=== PATIENT | male | born 1955 | race Caucasian/White ===

== ENCOUNTER 2018-07-08 16:12 | Emergency (ER) | payer BC ==
[2018-07-08 16:54] VITALS: BP 153/83
--- NOTE | 2018-07-08 17:12 | ED ---
Throat Pain/Nasal Congestion - HPI Summary HPI Summary: 62 yr old male with maxillary sinus pressure, post nasal drip, coughing. Onset a week ago, and getting worse. He has had prior sinus infections. He requests antibiotics at this point. He has no other complaints. - History of Current Complaint Chief Complaint: UCGeneralIllness Time Seen by Provider: 07/08/18 16:55 - Allergies/Home Medications Allergies/Adverse Reactions: Allergies Allergy/AdvReac Type Severity Reaction Status Date / Time Adhesive Tape Allergy Blisters Verified 07/08/18 16:50 [Tegaderm Dressing] PMH/Surg Hx/FS Hx/Imm Hx - Surgical History Surgery Procedure, Year, and Place: cholecystectomy Infectious Disease History: No Infectious Disease History: Denies: Traveled Outside the [place] in Last 30 Days - Social History Occupation: Employed Full-time Alcohol Use: Occasionally Substance Use Type: Reports: None Smoking Status (MU): Never Smoked Tobacco Review of Systems Constitutional: Negative Positive: Nasal Discharge, Other - sinus pressure All Other Systems Reviewed And Are Negative: Yes Physical Exam Triage Information Reviewed: Yes Vital Signs On Initial Exam: Initial Vitals Temp Pulse Resp BP Pulse Ox 97.5 F 90 16 153/83 97 07/08/18 16:50 07/08/18 16:50 07/08/18 16:50 07/08/18 16:50 07/08/18 16:50 Vital Signs Reviewed: Yes Appearance: Positive: Well-Appearing, No Pain Distress Skin: Positive: Warm, Skin Color Reflects Adequate Perfusion Head/Face: Positive: Normal Head/Face Inspection Eyes: Positive: EOMI ENT: Positive: Pharynx normal, Nasal congestion, Nasal drainage, TMs normal, Sinus tenderness Neck: Positive: Nontender Respiratory/Lung Sounds: Positive: Clear to Auscultation, Breath Sounds Present Cardiovascular: Positive: RRR. Negative: Murmur Abdomen Description: Negative: Distended Musculoskeletal: Positive: Strength/ROM Intact Neurological: Positive: Sensory/Motor Intact, Alert, Oriented to Person Place, Time, CN Intact II-III Psychiatric: Positive: Normal - [place] Coma Scale Best Eye Response: 4 - Spontaneous Best Motor Response: 6 - Obeys Commands Best Verbal Response: 5 - Oriented Coma Scale Total: 15 Diagnostics - Vital Signs Vital Signs Temp Pulse Resp BP Pulse Ox 07/08/18 16:50 97.5 F 90 16 153/83 97 - Laboratory Lab Statement: Any lab studies that have been ordered have been reviewed, and results considered in the medical decision making process. EENT Course/Dx - Course Course Of Treatment: 62 yr old male with the complaint of sinus pressure, drainage, cough. Rx with augmentin. - Diagnoses Provider Diagnoses: Sinusitis, Hypertension Discharge - Sign-Out/Discharge Documenting (check all that apply): Patient Departure All imaging exams completed and their final reports reviewed: No Studies - Discharge Plan Condition: Good Disposition: HOME Prescriptions: Amoxicillin/Clavulanate TAB* [Augmentin TAB 875*] 875 mg PO BID #20 tab Patient Education Materials: Sinusitis (ED), Hypertension (ED) Referrals: Tray Mcintosh DO [Primary Care Provider] - 3 Days - Billing Disposition and Condition Condition: GOOD Disposition: Home
== END 2018-07-08 17:17 | disposition home or self-care (01) ==
LOC: UCCORT 16:12
DX: J32.9 Chronic sinusitis, unspecified (principal); I10 Essential (primary) hypertension; Z91.09 Other allergy status, other than to drugs and biological substances
CPT/HCPCS: 99202; G0463

== ENCOUNTER 2019-06-06 09:56 | Emergency (ER) | payer BC ==
[2019-06-06 10:48] VITALS: BP 147/81
--- NOTE | 2019-06-06 11:06 | UC ---
Throat Pain/Nasal Jose Alejandro HPI - HPI Summary HPI Summary: 63-year-old male who has had cold symptoms for greater than one week and now has sinus pressure with purulent postnasal drainage and nasal coryza. - History of Current Complaint Chief Complaint: UCRespiratory Stated Complaint: HEAD AND CHEST CONGESTION, COUGH Time Seen by Provider: 06/06/19 10:39 Hx Obtained From: Patient Onset/Duration: Gradual Onset, Lasting Days Severity: Mild Pain Intensity: 0 Cough: Productive - Productive cough of greenish brown sputum. Associated Signs & Symptoms: Positive: Sinus Discomfort, Nasal Discharge - Allergies/Home Medications Allergies/Adverse Reactions: Allergies Allergy/AdvReac Type Severity Reaction Status Date / Time Adhesive Tape Allergy Blisters Verified 06/06/19 10:40 [Tegaderm Dressing] PMH/Surg Hx/FS Hx/Imm Hx Previously Healthy: Yes - Surgical History Surgical History: None Surgery Procedure, Year, and Place: cholecystectomy - Family History Known Family History: Positive: Non-Contributory - Social History Occupation: Employed Full-time Lives: With Family Alcohol Use: Occasionally Substance Use Type: None Smoking Status (MU): Never Smoked Tobacco Review of Systems All Other Systems Reviewed And Are Negative: Yes ENT: Positive: Nasal Discharge, Sinus Congestion, Sinus Pain/Tenderness Respiratory: Positive: Cough Is Patient Immunocompromised?: No Physical Exam Triage Information Reviewed: Yes Appearance: Well-Appearing, No Pain Distress, Well-Nourished Vital Signs: Initial Vital Signs Temp 97.6 F 06/06/19 10:42 Pulse 97 06/06/19 10:42 Resp 14 06/06/19 10:42 BP 147/81 06/06/19 10:42 Pulse Ox 97 06/06/19 10:42 Vital Signs Reviewed: Yes Eyes: Positive: Conjunctiva Clear ENT: Positive: Pharynx normal - Yellow purulent postnasal drainage, Nasal congestion, Nasal drainage - Yellow nasal coryza with inflamed turbinates., TMs normal, Sinus tenderness - Tender over the frontal sinuses bilaterally., Uvula midline Neck: Positive: Supple, Nontender, No Lymphadenopathy Respiratory: Positive: No respiratory distress, No accessory muscle use, Rhonchi - Very mild scattered rhonchi with forced expiration, no wheezing, no distress, good air movement throughout all lung razo. Cardiovascular: Positive: RRR, No Murmur, Pulses Normal, Brisk Capillary Refill Musculoskeletal Exam: Normal Neurological Exam: Normal Psychological Exam: Normal Skin Exam: Normal Throat Pain/Nasal Course/Dx - Course Course Of Treatment: Patient is comfortable here and in no distress. - Differential Dx/Diagnosis Provider Diagnosis: Sinusitis Discharge ED - Sign-Out/Discharge Documenting (check all that apply): Patient Departure All imaging exams completed and their final reports reviewed: No Studies - Discharge Plan Condition: Good Disposition: HOME Prescriptions: Benzonatate CAP* [Tessalon 100 MG CAP*] 100 mg PO TID PRN #21 cap PRN Reason: Cough DOXYcycline CAP(*) [DOXYcycline 100MG CAP(*)] 100 mg PO BID 10 Days #20 cap Patient Education Materials: Sinusitis (ED) Referrals: Tray Mcintosh DO [Primary Care Provider] - Additional Instructions: Increase fluids, no dairy products, antacids or multivitamins 2 hours before you take the doxycycline and 2 hours after however be sure and take it with food. Definite follow-up with your primary care provider in 5-7 days if no improvement. - Billing Disposition and Condition Condition: GOOD Disposition: Home
== END 2019-06-06 11:21 | disposition home or self-care (01) ==
LOC: UCCORT 09:56
DX: J32.9 Chronic sinusitis, unspecified (principal); R05 Cough; Z91.09 Other allergy status, other than to drugs and biological substances
CPT/HCPCS: 99212; G0463